=== PATIENT | female | born 2000 | race Caucasian/White ===

== ENCOUNTER 2023-09-09 15:55 | Emergency (ER) ==
[~2023-09-09] VITALS: Ht 165.1 cm; Wt 77.3 kg
[2023-09-09 15:56] VITALS: BP 126/69; TEMP 98.5; O2SAT 99
== END 2023-09-09 17:14 | disposition left against medical advice (07) ==
LOC: M ED 15:55
DX: Z53.21 Procedure and treatment not carried out due to patient leaving prior to being seen by health care provider (principal)

== ENCOUNTER 2023-09-11 12:18 | Emergency (ER) | payer OTHER ==
[~2023-09-11] VITALS: Ht 165.1 cm; Wt 77.0 kg
[2023-09-11 13:34] LABS: BASO # 0.1 10^3/uL (0.0-0.2); BASO % 0.7 % (0.0-1.0); EOS # 0.2 10^3/uL (0.0-0.5); EOS % 2.3 % (0.0-3.0); HEMATOCRIT 40.5 % (36.0-47.0); HEMOGLOBIN 13.3 g/dl (12.0-15.5); LYMPH # 2.5 10^3/uL (1.5-5.0); LYMPH % 36.6 % (24.0-44.0); MEAN CORPUSCULAR HEMOGLOBIN 27.6 pg (27.0-33.0); MEAN CORPUSCULAR HGB CONC 32.8 g/dl (32.0-36.5); MONO # 0.4 10^3/uL (0.0-0.8); MONO % 6.1 % (2.0-8.0); NEUTROPHILS # 3.7 10^3/uL (1.5-8.5); PLATELET COUNT, AUTOMATED 285 10^3/uL (150-450); RED BLOOD COUNT 4.82 10^6/uL (4.00-5.40); WHITE BLOOD COUNT 6.9 10^3/uL (4.0-10.0)
[2023-09-11 14:09] LABS: HCG, SERUM QUALITATIVE NEGATIVE (NEGATIVE)
[2023-09-11 15:58] LABS: BLOOD UREA NITROGEN 11 MG/DL (9-23); CALCIUM LEVEL 9.1 MG/DL (8.5-10.1); CARBON DIOXIDE LEVEL 23 MMOL/L (20-31); CHLORIDE LEVEL 108 MMOL/L (98-107); CREATININE FOR GFR 0.65 MG/DL (0.55-1.30); GLOMERULAR FILTRATION RATE > 60.0 (>60); GLUCOSE, FASTING 85 MG/DL (60-100); POTASSIUM SERUM 4.2 MMOL/L (3.5-5.1); SODIUM LEVEL 140 MMOL/L (136-145)
[2023-09-11 16:49] LABS: CK-MB VALUE MASS < 1.0 NG/ML (<3.6); CPK CREATINE PHOSPHOKINASE 64 U/L (34-145); MB/CK RELATIVE INDEX 1.56 (< OR =4)
[2023-09-11] MEDS: NS 1,000 ML IV ONE (17:32)
[2023-09-11] MEDS ORDERED: ISOVUE-370 76% 100ML VIAL As Ordered ONE (18:05)
[2023-09-11 18:57] LABS: Trichomonas vaginalis (AMP) NOT DETECTED (NEGATIVE)
[2023-09-11 19:21] LABS: GC DNA AMPLIFICATION NEGATIVE (NEGATIVE)
[2023-09-11] MEDS: LORazepam 2 MG/ML 1ML VIAL IV STA (21:26)
[2023-09-11 22:50] VITALS: BP 115/67; TEMP 97.9; O2SAT 98
[2023-09-11] MEDS ORDERED: MECL-209 PO (22:54)
[2023-09-11] MEDS ORDERED: ANUS2.5C2 TOP (22:54)
== END 2023-09-11 22:59 | disposition home or self-care (01) ==
LOC: M ED 12:18
DX: N83.202 Unspecified ovarian cyst, left side (principal); R20.2 Paresthesia of skin; K64.9 Unspecified hemorrhoids; G43.909 Migraine, unspecified, not intractable, without status migrainosus; F31.9 Bipolar disorder, unspecified; K90.0 Celiac disease; Z79.899 Other long term (current) drug therapy
CPT/HCPCS: 70450; 70544; 70547; 70551; 71045; 71275; 74177; 76856; 80048; 81001; 82550; 82553; 84484; 84703; 85025; 85379; 86850; 86900; 86901; 87486; 87581; 87633; 87661; 87798; 87810; 87850; 93005; 93976; 96361; 96374; 99284; J2060; Q9967